=== PATIENT | female | born 1995 | race Caucasian/White ===

== ENCOUNTER 2019-03-27 16:54 | Emergency (ER) | payer BC ==
[~2019-03-27] VITALS: Ht 157.5 cm; Wt 59.4 kg
[2019-03-27 17:06] VITALS: Ht 157.5 cm; Wt 59.4 kg
[2019-03-27 20:51] VITALS: BP 127/94
== END 2019-03-27 20:51 | disposition home or self-care (01) ==
LOC: ED 16:54
DX: F41.0 Panic disorder [episodic paroxysmal anxiety] (principal); F12.10 Cannabis abuse, uncomplicated
CPT/HCPCS: Q0092